=== PATIENT | male | born 1975 | race Caucasian/White ===

== ENCOUNTER → 2018-10-10 | Outpatient (CLI) | payer BC ==
[~2018-10-10] MED LIST: REGADENOSON 0.4 MG/5 ML DISP.SYRIN. IV ONE
--- NOTE | 2018-10-11 15:19 | PCVCIMAG ---
APPROVED REPORT Imaging Protocol: Rest Tc-99m/Stress Tc-99m 1 day Study performed: 10/10/2018 09:16:27 Indication: Chest pain Patient Location: Out-Patient Stress Nurse: MYRA Swenson Tech:Venkat Bellamy NMCHANTELB Ht: 6 ft 1 in Wt: 250 lbs BSA: 2.37 m2 HR: 63 bpm BP: 133/84 mmHg BMI: 32.97 Rhythm: Sinus Bradycardia Medical History Medical History: Smoker Medications: Vascepa Allergies: No known drug allergies Pretest Chest Pain Characteristics: No chest pain Exercise History: Physically active Resting Data Rest SPECT myocardial perfusion imaging was performed in supine position 45 minutes following the intravenous injection of 10.7 mCi of Tc-99m Sestamibi. Time of rest injection: 829 Date: 10/10/2018 Administration Route: IV Administration Site: Right Arm Pharmacologic Stress Pharmacologic stress test was performed by injecting Regadenoson 0.4 mg IV push over 10-15 seconds immediately followed by the intravenous injection of 31.8 mCi of Tc-99m Sestamibi. Time of stress injection: 944 Date: 10/10/2018 Administration Route: IV Administration Site: Right Arm Gated Stress SPECT was performed 45 minutes after stress injection. The images were gated to evaluate regional wall motion and calculate left ventricular ejection fraction. Stress Test Details Stress Test: Pharmacologic stress was paired with low level exercise. Reason for pharmacologic stress test: Back issues. HRMax Heart Rate (APMHR): 178 bpm Resting HR: 63 bpmTarget HR (85% APMHR): 151 bpm Max HR Achieved: 109 bpm % of APMHR: 61 Recovery HR: 72 bpm BP Resting BP: 133/84 mmHg Max BP: 132/78 mmHg Recovery BP: 134/83 mmHg ECG Resting ECG: Sinus Bradycardia Stress ECG: Sinus Rhythm Arrhythmia: None Recovery ECG: Sinus Rhythm Clinical Reason for Termination: Completed protocol Stress Symptoms: Chest pain, Leg Fatigue Exercise duration: 4 min 00 sec Scale: Active Symptoms resolved with caffeine. Stress ECG Conclusion 1. Adequate response to intravenous Lexiscan 2. Inadequate heart rate response for an ECT diagnosis Study Data Post stress, the left ventricular ejection was 67%.. SSS: 5 SRS: 1 SDS: 4 TID = 1.04. Perfusion There is a medium area of moderately reduced uptake in the mid and apical segment of the anterolateral wall which is seen on the stress images and improves on the resting images. This area thickens and moves normally and is most consistent with ischemia. Wall Motion Normal left ventricular wall motion. Nuclear Conclusion ECG Findings: non-diagnostic Clinical Findings: negative for ischemia Nuclear Findings: positive for ischemia Exercise Capacity: not assessed Left Ventricular Function: normal 1. Intermediate to high risk study based on evidence of inducible ischemia involving the anterolateral wall 2. Post stress left ventricular ejection fraction of 67% without wall motion abnormalities <Conclusion> 1. Adequate response to intravenous Lexiscan 2. Inadequate heart rate response for an ECT diagnosis
== END | disposition home or self-care (01) ==
LOC: PCVCIMAG 08:17
PROVIDERS: ATTEND Internal Medicine
DX: R07.9 Chest pain, unspecified (principal); Z87.898 Personal history of other specified conditions
CPT/HCPCS: 78452; 93017; A9500; J2785